=== PATIENT | female | born 1995 | race Caucasian/White ===

== ENCOUNTER 2016-12-21 14:16 | Emergency (ER) | payer BC ==
[~2016-12-21] VITALS: Ht 149.9 cm; Wt 63.7 kg
[~2016-12-21 14:16] MED LIST: Motrin PO
[2016-12-21 15:00] LABS: HEMATOCRIT 39.8 % (36.0-46.0); MCH 29.3 PG (29.0-34.0); MCHC 33.7 G/DL (30.0-36.0); MCV 86.9 FL (83-99); MEAN PLAT.VOLUME 9.6 uM^3 (9.5-12.4); PLATELET COUNT 306 K/uL (156-360); RBC DIS.WIDTH-CV 11.9 % (11.8-14.6); RBC DIS.WIDTH-SD 38.1 % (39-53); RED BLOOD COUNT 4.58 M/uL (3.80-5.20); WHITE BLOOD COUNT 7.7 K/uL (4.1-10.2)
[2016-12-21 15:00] LABS: ADD MEDTOX COMMENT Y; AMPHETAMINE NEGATIVE (500 ng/mL); BARBITURATES NEGATIVE (200 ng/mL); BENZODIAZEPINES NEGATIVE (150 ng/mL); COCAINE NEGATIVE (150 ng/mL); INTERNAL CONTROLS VALID? YES; METHADONE NEGATIVE (200 ng/mL); METHAMPHETAMINE NEGATIVE (500 ng/mL); OPIATES (MORPHINE) NEGATIVE (100 ng/mL); OXYCODONE NEGATIVE (100 ng/mL); PHENCYCLIDINE NEGATIVE (25 ng/mL); PROPOXYPHENE NEGATIVE (300 ng/mL); THC CANNABINOIDS PRESUMPTIVE POSITIVE (50 ng/mL); TRICYCLIC ANTIDEPRESSANTS NEGATIVE (300 ng/mL)
[2016-12-21 15:08] LABS: CHLORIDE 106 mEq/L (99-109); POTASSIUM 3.8 mEq/L (3.7-5.4); SODIUM 139 mEq/L (136-147)
[2016-12-21 15:10] LABS: GLUCOSE 114 mg/dL (70-99)
[2016-12-21 15:11] LABS: ANION GAP 10 MEQ/L (2-14)
[2016-12-21 15:13] LABS: SERUM ETHYL ALCOHOL < 10 mg/dL
[2016-12-21 15:14] LABS: GFR ESTIMATE (CALCULATED) > 59 mL/min/
[2016-12-21 15:15] LABS: UREA NITROGEN (BUN) 9 mg/dL (9-23)
[2016-12-21 15:22] LABS: QUANTITATIVE HCG < 4.0 MIU/ML
[2016-12-21] MEDS ORDERED: XANAX0.25 MG PO (20:28)
[2016-12-21 20:49] VITALS: BP 118/79
== END 2016-12-21 20:52 | disposition home or self-care (01) ==
LOC: EME 14:16
DX: F41.1 Generalized anxiety disorder (principal); F41.0 Panic disorder [episodic paroxysmal anxiety]; F17.200 Nicotine dependence, unspecified, uncomplicated
CPT/HCPCS: 80048; 84702; 84999; 85027; 90839; 99281; 99284; G0480